=== PATIENT | male | born 1980 | race Caucasian/White ===

== ENCOUNTER 2023-06-26 10:11 | Emergency (ER) | payer MEDICAID ==
[~2023-06-26] VITALS: Ht 157.5 cm; Wt 68.0 kg
[2023-06-26 10:13] VITALS: BP 98/61; PULSE 194; RESP 20; TEMP 97.8; O2SAT 100
[2023-06-26] MEDS: DILTIAZEM 25 MG/5 ML VIAL IVP ONE (10:47)
[2023-06-26] MEDS: NACL 0.9% 1,000 ML IV ONE ×2 (10:53→11:47)
[2023-06-26] MEDS: DILTIAZEM 30 MG TAB PO ONE (11:39)
[2023-06-26 11:40] VITALS: TEMP 97.7
[2023-06-26 12:49] VITALS: BP 108/68; PULSE 98; RESP 16; O2SAT 97
== END 2023-06-26 12:51 ==
LOC: MED 10:11
DX: I47.10 Supraventricular tachycardia, unspecified (principal); E78.5 Hyperlipidemia, unspecified
CPT/HCPCS: 93005; 96361; 96374; 99291; J3490; J7030

== ENCOUNTER 2023-09-06 15:00 | Emergency (ER) | payer MEDICAID, OTHER ==
[~2023-09-06] VITALS: Ht 157.5 cm; Wt 73.0 kg
[2023-09-06 15:05] VITALS: BP 102/65; PULSE 199; RESP 18; TEMP 98.3; O2SAT 99
[2023-09-06] MEDS ORDERED: DILTIAZEM 25 MG/5 ML VIAL IVP ONE (15:18)
[2023-09-06] MEDS: NACL 0.9% 1,000 ML IV ONE (15:27)
[2023-09-06 15:32] LABS: BASOPHILS # (AUTO) 0.1 K/uL (0.00-0.22); BASOPHILS % (AUTO) 1.2 % (0.0-2.0); EOSINOPHILS # (AUTO) 0.1 K/uL (0-0.4); EOSINOPHILS % (AUTO) 2.7 % (0.0-4.0); HEMATOCRIT 42.7 % (36-52); HEMOGLOBIN 14.8 g/dL (12.0-18.0); LYMPHOCYTES # (AUTO) 1.7 K/uL (2.0-11.5); LYMPHOCYTES % (AUTO) 33.9 % (20.5-51.1); MEAN CORPUSCULAR HEMOGLOBIN 31 pg (27-31); MEAN CORPUSCULAR HGB CONC 35 g/dL (33-37); MEAN CORPUSCULAR VOLUME 88.6 fL (80-94); MONOCYTES # (AUTO) 0.4 K/uL (0.8-1.0); MONOCYTES % (AUTO) 7.7 % (1.7-9.3); NEUTROPHILS # (AUTO) 2.8 K/uL (1.8-7.7); NEUTROPHILS % (AUTO) 54.5 % (42.2-75.2); PLATELET COUNT (AUTO) 199 K/uL (140-450); RED BLOOD CELL COUNT(AUTO) 4.82 MIL/uL (4.20-6.10); RED CELL DISTRIBUTION WIDTH 13.8 % (11.6-13.7); WHITE BLOOD COUNT (AUTO) 5.2 K/uL (4.8-10.8)
[2023-09-06] MEDS: DILTIAZEM 25 MG/5 ML VIAL IVP ONE (15:32)
[2023-09-06 15:38] LABS: ANION GAP 12.3 (8-16); CALCIUM 8.8 mg/dL (8.5-10.1); CARBON DIOXIDE 27.7 mmol/L (21-32); CREATININE 0.8 mg/dL (0.6-1.3)
[2023-09-06 15:53] LABS: PHOSPHORUS 2.7 mg/dL (2.5-4.9); THYROID STIMULATING HORMONE 2.42 uIU/mL (0.34-3.74)
[2023-09-06] MEDS: POTASSIUM CHLORIDE 10 MEQ TABER PO ONE (16:11)
[2023-09-06] MEDS ORDERED: POTA10TA70 PO (16:35)
[2023-09-06 16:47] VITALS: BP 99/66; PULSE 88; RESP 17; TEMP 98.2; O2SAT 99
== END 2023-09-06 16:47 | disposition home or self-care (01) ==
LOC: MED 15:00
DX: I47.10 Supraventricular tachycardia, unspecified (principal)
CPT/HCPCS: 36415; 80048; 83735; 84100; 84443; 85025; 93005; 96361; 96374; 99291; J3490; J7030